=== PATIENT | male | born 1975 | race African-American/Black ===

== ENCOUNTER 2022-07-22 03:42 | Emergency (ER) | payer OTHER ==
[~2022-07-22] VITALS: Ht 180.3 cm; Wt 117.0 kg
[2022-07-22 03:53] VITALS: BP 159/104
[2022-07-22 12:37] LABS: HEMATOCRIT. 48.6 % (42.0-52.0); HEMOGLOBIN. 16.5 g/dL (14.0-18.0); MEAN PLATELET VOLUME 7.2 fl (7.4-10.4); PLATELET 211 x1000/uL (130-400); RED BLOOD CELL COUNT 5.52 mill/uL (4.7-6.1); RED CELL DISTRIBUTION WIDTH 15.2 % (11.6-14.6)
[2022-07-22 12:47] LABS: CHLORIDE 103 mEq/L (98-107)
[2022-07-22 12:52] LABS: CLARITY URINE CLEAR (CLEAR); COLOR URINE YELLOW (YELLOW); KETONES URINE 3+ (NEGATIVE); LEUKOCYTE ESTERASE URINE NEGATIVE (NEGATIVE); NITRITE URINE NEGATIVE (NEGATIVE); OCCULT BLOOD URINE NEGATIVE (NEGATIVE); PH URINE 5.5 (4.5-8.0); PROTEIN URINE 1+ (NEGATIVE); SPECIFIC GRAVITY URINE 1.029 (1.005-1.030)
[2022-07-22 12:56] LABS: ETHANOL BLOOD < 10 mg/dL
[2022-07-22 13:14] LABS: *AMPHETAMINES SCREEN URINE PRESUMTIVE POSITIVE (NEGATIVE); *BARBITURATES SCREEN URINE NEGATIVE (NEGATIVE); *BENZODIAZEPINES SCREEN URINE NEGATIVE (NEGATIVE); *COCAINE SCREEN URINE NEGATIVE (NEGATIVE); CANNABINOID URINE SCREEN PRESUMTIVE POSITIVE (NEGATIVE); METHADONE URINE SCREEN NEGATIVE (NEGATIVE); OPIATES URINE SCREEN NEGATIVE (NEGATIVE); PHENCYCLIDINE URINE SCREEN NEGATIVE (NEGATIVE)
[2022-07-22 13:44] LABS: PLATELET ESTIMATE NORMAL
== END 2022-07-22 14:59 | disposition home or self-care (01) ==
LOC: ER 04:16
DX: R45.851 Suicidal ideations (principal); F15.10 Other stimulant abuse, uncomplicated; F31.9 Bipolar disorder, unspecified; F20.9 Schizophrenia, unspecified; Z20.822 Contact with and (suspected) exposure to COVID-19
CPT/HCPCS: 36415; 80053; 80305; 80320; 81003; 85025; 87426; 99283; G0480

== ENCOUNTER 2022-09-28 22:47 | Emergency (ER) | payer MEDICAID, OTHER ==
[~2022-09-28] VITALS: Ht 172.7 cm; Wt 125.0 kg
[2022-09-28] MEDS ORDERED: LORAZEPAM 2MG/ML CPJ IV ONE (23:15)
[2022-09-28 23:48] LABS: BASOPHILS % 0.5 % (0.0-2.0); HEMATOCRIT. 50.3 % (42.0-52.0); HEMOGLOBIN. 16.8 g/dL (14.0-18.0); LYMPHOCYTES % 43.7 % (20.0-50.0); MEAN CORPUSCULAR HEMOGLOBIN 30.2 pg (28.0-32.0); MEAN CORPUSCULAR VOLUME 90.4 fL (80.0-94.0); MEAN PLATELET VOLUME 7.5 fl (7.4-10.4); MONOCYTES % 11.7 % (2.0-8.0); NEUTROPHILS % 43.1 % (40.0-76.0); PLATELET 210 x1000/uL (130-400); RED BLOOD CELL COUNT 5.57 mill/uL (4.7-6.1); RED CELL DISTRIBUTION WIDTH 14.8 % (11.6-14.6)
[2022-09-28 23:54] LABS: CHLORIDE 104 mEq/L (98-107)
[2022-09-29 00:07] LABS: ETHANOL BLOOD 40 mg/dL
[2022-09-29] MEDS ORDERED: LORAZEPAM 2MG/ML CPJ IV NR (04:45)
[2022-09-29 06:24] VITALS: BP 143/79
== END 2022-09-29 07:41 | disposition home or self-care (01) ==
LOC: ER 22:47
DX: T43.651A Poisoning by methamphetamines accidental (unintentional), initial encounter (principal); F15.988 Other stimulant use, unspecified with other stimulant-induced disorder; R07.89 Other chest pain; R00.0 Tachycardia, unspecified; Y92.89 Other specified places as the place of occurrence of the external cause; Z59.00 Homelessness unspecified
CPT/HCPCS: 36415; 71045; 80053; 80320; 83880; 84484; 85025; 96374; 99284; J2060; Z7610; G0480